=== PATIENT | male | born 1955 | race African-American/Black ===

== ENCOUNTER 2017-09-17 16:26 | Inpatient (IN) ==
[2017-09-17] MEDS ORDERED: SODIUM CHLORIDE 0.9% 500 ML IV STA ×2 (17:06→18:57)
[2017-09-17] MEDS ORDERED: INSULIN LISPRO 100 UNIT/ML SUBCUT STA (17:27)
[2017-09-17 18:22] LABS: Basophils % 0.1 % (0.0-0.8); Hematocrit 20.2 VOL% (42.0-52.0); Hemoglobin 6.5 GM/DL (14.0-18.0); Immature Granulocytes % 0.7 %; Immature Granulocytes Absolute 0.07 #; Lymphocytes # 0.4 10*3/uL (1.4-4.0); Lymphocytes % 4.1 % (21.2-54.2); Mean Corpuscular HGB Conc 32.2 GM/DL (32-36); Mean Corpuscular Hemoglobin 29 PG (27-34); Mean Corpuscular Volume 89.4 FL (87-102); Mean Platelet Volume 10.5 FL (9.6-12.0); Monocytes # 0.6 10*3/uL (0.11-0.8); Monocytes % 6.3 % (1.7-12.7); Neutrophils # 8.5 10*3/uL (1.4-7.4); Neutrophils % 88.8 % (38.7-73.9); Platelet Count 254 T/CUMM (130-400); Red Blood Count 2.26 MC/CUMM (3.8-5.5); Red Cell Distribution Width 13.2 % (9.3-17.3); White Blood Count 9.6 T/CUMM (4-12)
[2017-09-17 18:31] LABS: Apearance,Urine Slightly Hazy (Clear); Bilirubin,Urine Negative (Negative); Blood, Urine Negative (Negative); Glucose,Urine (UA) >=500 mg/dL (Negative); Ketones,Urine 5 mg/dL (Negative); Nitrite,Urine Negative (Negative); Protein,Urine Negative; RBC,Urine 20 /HPF (0-4); Urine Color Yellow (Yellow); Urine Specific Gravity 1.013 (1.001-1.035); Urine Urobilinogen < 2.0 EU/DL (0.2-1.0); WBC,Urine 9 /HPF (0-6)
[2017-09-17 18:45] LABS: Lymphocytes 10 % (20-55); Polychromasia Few; Segmented Neutrophils 88 % (50-85); Total Cells Counted 100
[2017-09-17 18:46] LABS: Elliptocytes Few; Platelet Estimate Adequate
[2017-09-17 18:49] LABS: Alanine Aminotransferase 36 U/L (16-61); Albumin 2.1 G/DL (3.4-5.0); Alkaline Phosphatase 64 U/L (45-117); Aspartate Amino Transferase 57 U/L (0-37); Bilirubin,Total < 0.39 MG/DL (0.2-1.0); Calcium 8.2 MG/DL (8.5-10.1); Total Protein 6.3 G/DL (6.4-8.3)
[2017-09-17 18:50] LABS: Blood Urea Nitrogen 66 MG/DL (7-18); Glucose 450 MG/DL (74-106); Osmolality,Calculated 311.8 MOS/KG (273-304); Potassium 5.2 MMOL/L (3.5-5.1); Sodium 137 MMOL/L (136-145)
[2017-09-17] MEDS ORDERED: PANTOPRAZOLE INJ 80 MG in SODIUM CHLORIDE 0.9% 100 ML IV ONE (18:55)
[2017-09-17] MEDS ORDERED: SODIUM CHLORIDE 0.9% 1,000 ML IV PRN ×2 (18:56→21:11)
[2017-09-17] MEDS ORDERED: PANTOPRAZOLE 40 MG VIAL IV ONE (19:26)
[2017-09-17] MEDS ORDERED: PANTOPRAZOLE INJ 200 MG in SODIUM CHLORIDE 0.9% 250 ML IV SCH (19:30)
[2017-09-17] MEDS ORDERED: GLUCAGON 1 MG VIAL IM PRN (19:36)
[2017-09-17] MEDS ORDERED: DEXTROSE 50% 25 GM/50 ML VIAL IV PRN (19:36)
[2017-09-17] MEDS ORDERED: INSULIN REGULAR 100 UNIT/ML SUBCUT SCH (21:00)
[2017-09-17] MEDS ORDERED: MORPHINE 4 MG/1 ML VIAL IV PRN (21:11)
[2017-09-17] MEDS ORDERED: ONDANSETRON 4 MG/2 ML VIAL IV PRN (21:11)
[2017-09-17] MEDS: SODIUM CHLORIDE 0.9% 1,000 ML IV SCH (22:00)
[2017-09-17 22:12] LABS: INR 1.2; PT Patient Result 12.5 SECS
[2017-09-17] MEDS: INSULIN GLARGINE 100 UNIT/ML SUBCUT SCH (23:16)
[2017-09-17] MEDS: levETIRAcetam 250 MG TABLET PEG SCH (23:16)
[2017-09-17] MEDS: glyBURIDE 5 MG TABLET PEG SCH (23:16)
[2017-09-17] MEDS: cefTRIAXone 1,000 MG in SYRINGE 1 EACH IV SCH (23:22)
[2017-09-17] MEDS: DIVALPROEX SPRINKLE 125 MG CAPSULE PER TUBE SCH (23:58)
[2017-09-18] MEDS: DIVALPROEX SPRINKLE 125 MG CAPSULE PER TUBE SCH (09:27)
[2017-09-18] MEDS: levETIRAcetam 250 MG TABLET PEG SCH ×2 (09:28→22:35)
[2017-09-18] MEDS: glyBURIDE 5 MG TABLET PEG SCH ×2 (09:28→18:32)
[2017-09-18] MEDS: PANTOPRAZOLE 40 MG VIAL IV SCH ×2 (09:29→22:34)
[2017-09-18] MEDS: cefTRIAXone 1,000 MG in SYRINGE 1 EACH IV SCH ×2 (09:43→22:34)
[2017-09-18] MEDS: SODIUM CHLORIDE 0.9% 1,000 ML IV SCH (10:53)
[2017-09-18 10:57] LABS: Basophils % 0.2 % (0.0-0.8); Eosinophils # 0.1 10*3/uL (0.0-0.87); Eosinophils % 0.5 % (0.00-10.9); Hematocrit 28.9 VOL% (42.0-52.0); Immature Granulocytes % 0.9 %; Lymphocytes # 0.8 10*3/uL (1.4-4.0); Lymphocytes % 7.2 % (21.2-54.2); Mean Corpuscular HGB Conc 32.9 GM/DL (32-36); Mean Corpuscular Hemoglobin 29 PG (27-34); Mean Corpuscular Volume 89.2 FL (87-102); Monocytes # 1.6 10*3/uL (0.11-0.8); Monocytes % 15.3 % (1.7-12.7); Neutrophils # 8.2 10*3/uL (1.4-7.4); Neutrophils % 75.9 % (38.7-73.9); Platelet Count 216 T/CUMM (130-400); Red Blood Count 3.24 MC/CUMM (3.8-5.5); Red Cell Distribution Width 13.2 % (9.3-17.3); White Blood Count 10.7 T/CUMM (4-12)
[2017-09-18 11:11] LABS: Hemoglobin 9.5 GM/DL (14.0-18.0)
[2017-09-18 11:22] LABS: Hypochromasia 1+; Microcytosis Slight; Ovalocytes Slight; Platelet Estimate Adequate
[2017-09-18 11:29] LABS: Calcium 8.8 MG/DL (8.5-10.1); Osmolality,Calculated 291.4 MOS/KG (273-304); Potassium 4.6 MMOL/L (3.5-5.1)
[2017-09-18] MEDS: INSULIN REGULAR 100 UNIT/ML SUBCUT SCH ×2 (11:47→18:33)
[2017-09-18] MEDS: COLLAGENASE OINT 30 GM TUBE TOP SCH (13:54)
[2017-09-18] MEDS: ZINC OXIDE PASTE 113 GM TUBE TOP SCH ×2 (13:54→22:35)
[2017-09-18 14:11] LABS: Hematocrit 31.6 VOL% (42.0-52.0); Hemoglobin 10.7 GM/DL (14.0-18.0)
[2017-09-18 21:36] LABS: Hematocrit 29.2 VOL% (42.0-52.0)
[2017-09-18] MEDS: INSULIN GLARGINE 100 UNIT/ML SUBCUT SCH (22:41)
[2017-09-19] MEDS: DIVALPROEX SPRINKLE 125 MG CAPSULE PER TUBE SCH ×3 (00:18→21:12)
[2017-09-19] MEDS: INSULIN REGULAR 100 UNIT/ML SUBCUT SCH ×4 (00:19→18:50)
[2017-09-19] MEDS: SODIUM CHLORIDE 0.9% 1,000 ML IV SCH (00:20)
[2017-09-19 05:52] LABS: Prealbumin 10.9 MG/DL (20-40)
[2017-09-19] MEDS: PANTOPRAZOLE 40 MG VIAL IV SCH ×2 (10:34→21:12)
[2017-09-19] MEDS: cefTRIAXone 1,000 MG in SYRINGE 1 EACH IV SCH ×2 (10:34→21:11)
[2017-09-19] MEDS: ZINC OXIDE PASTE 113 GM TUBE TOP SCH ×2 (10:35→21:19)
[2017-09-19] MEDS: levETIRAcetam 250 MG TABLET PEG SCH ×2 (10:35→21:18)
[2017-09-19] MEDS: glyBURIDE 5 MG TABLET PEG SCH (10:35)
[2017-09-19] MEDS: COLLAGENASE OINT 30 GM TUBE TOP SCH ×2 (10:36→16:39)
[2017-09-19] MEDS: glyBURIDE 2.5 MG TABLET PO SCH ×3 (11:55→18:51)
[2017-09-19 16:36] LABS: Basophils % 0.2 % (0.0-0.8); Eosinophils # 0.1 10*3/uL (0.0-0.87); Eosinophils % 0.5 % (0.00-10.9); Hemoglobin 9.2 GM/DL (14.0-18.0); Immature Granulocytes % 0.6 %; Immature Granulocytes Absolute 0.07 #; Lymphocytes # 0.7 10*3/uL (1.4-4.0); Lymphocytes % 5.9 % (21.2-54.2); Mean Corpuscular HGB Conc 34.1 GM/DL (32-36); Mean Corpuscular Hemoglobin 30 PG (27-34); Mean Corpuscular Volume 87.4 FL (87-102); Monocytes # 1.6 10*3/uL (0.11-0.8); Monocytes % 12.6 % (1.7-12.7); Neutrophils # 9.9 10*3/uL (1.4-7.4); Neutrophils % 80.2 % (38.7-73.9); Platelet Count 208 T/CUMM (130-400); Red Blood Count 3.09 MC/CUMM (3.8-5.5); Red Cell Distribution Width 13.7 % (9.3-17.3); White Blood Count 12.3 T/CUMM (4-12)
[2017-09-19] MEDS: FLUCONAZOLE INJ 200 MG in PREMIX 1 EACH IV SCH (16:39)
[2017-09-19 16:58] LABS: Lymphocytes 10 % (20-55); Platelet Estimate Normal; Segmented Neutrophils 84 % (50-85); Total Cells Counted 100
[2017-09-19 16:59] LABS: Hypochromasia Slight; Microcytosis Slight
[2017-09-20] MEDS: INSULIN REGULAR 100 UNIT/ML SUBCUT SCH ×4 (01:24→17:53)
[2017-09-20 05:41] LABS: Basophils % 0.1 % (0.0-0.8); Eosinophils % 0.4 % (0.00-10.9); Hematocrit 26.3 VOL% (42.0-52.0); Hemoglobin 8.6 GM/DL (14.0-18.0); Immature Granulocytes % 0.7 %; Immature Granulocytes Absolute 0.08 #; Lymphocytes # 0.9 10*3/uL (1.4-4.0); Lymphocytes % 7.7 % (21.2-54.2); Mean Corpuscular HGB Conc 32.7 GM/DL (32-36); Mean Corpuscular Hemoglobin 29 PG (27-34); Mean Corpuscular Volume 89.2 FL (87-102); Mean Platelet Volume 9.8 FL (9.6-12.0); Monocytes # 1.5 10*3/uL (0.11-0.8); Monocytes % 13.2 % (1.7-12.7); Neutrophils # 8.7 10*3/uL (1.4-7.4); Neutrophils % 77.9 % (38.7-73.9); Platelet Count 217 T/CUMM (130-400); Red Blood Count 2.95 MC/CUMM (3.8-5.5); Red Cell Distribution Width 13.5 % (9.3-17.3); White Blood Count 11.1 T/CUMM (4-12)
[2017-09-20 06:14] LABS: Albumin 1.9 G/DL (3.4-5.0); Bilirubin,Total 0.5 MG/DL (0.2-1.0); Calcium 8.3 MG/DL (8.5-10.1); Potassium 3.9 MMOL/L (3.5-5.1); Total Protein 6.1 G/DL (6.4-8.3)
[2017-09-20] MEDS: glyBURIDE 2.5 MG TABLET PO SCH ×2 (09:00→17:54)
[2017-09-20] MEDS: PANTOPRAZOLE 40 MG VIAL IV SCH ×2 (09:52→21:06)
[2017-09-20] MEDS: levETIRAcetam 250 MG TABLET PEG SCH ×2 (09:53→21:06)
[2017-09-20] MEDS: DIVALPROEX SPRINKLE 125 MG CAPSULE PER TUBE SCH ×2 (09:53→21:06)
[2017-09-20] MEDS: cefTRIAXone 1,000 MG in SYRINGE 1 EACH IV SCH ×2 (09:53→21:06)
[2017-09-20] MEDS: COLLAGENASE OINT 30 GM TUBE TOP SCH ×2 (09:55→13:42)
[2017-09-20] MEDS: ZINC OXIDE PASTE 113 GM TUBE TOP SCH ×2 (09:55→21:07)
[2017-09-20] MEDS: FLUCONAZOLE INJ 200 MG in PREMIX 1 EACH IV SCH (17:54)
[2017-09-21] MEDS: INSULIN REGULAR 100 UNIT/ML SUBCUT SCH ×5 (00:29→23:27)
[2017-09-21 07:07] LABS: Basophils % 0.1 % (0.0-0.8); Eosinophils % 0.3 % (0.00-10.9); Hematocrit 27.2 VOL% (42.0-52.0); Hemoglobin 8.6 GM/DL (14.0-18.0); Immature Granulocytes % 0.9 %; Lymphocytes # 0.9 10*3/uL (1.4-4.0); Lymphocytes % 7.8 % (21.2-54.2); Mean Corpuscular HGB Conc 31.6 GM/DL (32-36); Mean Corpuscular Hemoglobin 29 PG (27-34); Mean Platelet Volume 9.6 FL (9.6-12.0); Monocytes # 1.1 10*3/uL (0.11-0.8); Monocytes % 9.8 % (1.7-12.7); Neutrophils # 9.3 10*3/uL (1.4-7.4); Neutrophils % 81.1 % (38.7-73.9); Platelet Count 228 T/CUMM (130-400); Red Blood Count 2.99 MC/CUMM (3.8-5.5); Red Cell Distribution Width 13.8 % (9.3-17.3); White Blood Count 11.4 T/CUMM (4-12)
[2017-09-21] MEDS: glyBURIDE 2.5 MG TABLET PO SCH ×2 (09:18→16:53)
[2017-09-21] MEDS: levETIRAcetam 250 MG TABLET PEG SCH ×2 (09:19→20:46)
[2017-09-21] MEDS: PANTOPRAZOLE 40 MG VIAL IV SCH ×2 (09:19→20:48)
[2017-09-21] MEDS: cefTRIAXone 1,000 MG in SYRINGE 1 EACH IV SCH ×2 (09:20→20:48)
[2017-09-21] MEDS: DIVALPROEX SPRINKLE 125 MG CAPSULE PER TUBE SCH ×2 (09:21→20:47)
[2017-09-21] MEDS: ZINC OXIDE PASTE 113 GM TUBE TOP SCH ×2 (09:23→21:01)
[2017-09-21] MEDS: FLUCONAZOLE INJ 200 MG in PREMIX 1 EACH IV SCH (16:55)
[2017-09-21] MEDS: COLLAGENASE OINT 30 GM TUBE TOP SCH (17:40)
[2017-09-21] MEDS ORDERED: ACETAMINOPHEN 325 MG/10.15 ML UDCUP PO PRN (20:11)
[2017-09-21] MEDS: FLUCONAZOLE INJ 100 MG in IV BAG 1 EACH IV SCH (21:35)
[2017-09-22] MEDS ORDERED: IBUPROFEN 100 MG/5 ML UDCUP PO PRN (00:31)
[2017-09-22 01:49] LABS: Amorphous Crystals,Urine Occasional /HPF (Few); Apearance,Urine CLOUDY (Clear); Bilirubin,Urine Negative (Negative); Blood, Urine Moderate mg/dL (Negative); Glucose,Urine (UA) 150 mg/dL (Negative); Ketones,Urine 5 mg/dL (Negative); Mucus,Urine Occasional /LPF (Occasional); Nitrite,Urine Negative (Negative); Protein,Urine 30 MG/DL; RBC,Urine 233 /HPF (0-4); Urine Color Yellow (Yellow); Urine Specific Gravity 1.017 (1.001-1.035); Urine Urobilinogen < 2.0 EU/DL (0.2-1.0); WBC,Urine 113 /HPF (0-6)
[2017-09-22 01:52] LABS: Basophils % 0.2 % (0.0-0.8); Hematocrit 27.2 VOL% (42.0-52.0); Hemoglobin 8.8 GM/DL (14.0-18.0); Immature Granulocytes % 0.4 %; Immature Granulocytes Absolute 0.04 #; Lymphocytes # 0.7 10*3/uL (1.4-4.0); Lymphocytes % 8.1 % (21.2-54.2); Mean Corpuscular HGB Conc 32.4 GM/DL (32-36); Mean Corpuscular Hemoglobin 30 PG (27-34); Mean Corpuscular Volume 91.3 FL (87-102); Mean Platelet Volume 9.4 FL (9.6-12.0); Monocytes # 0.7 10*3/uL (0.11-0.8); Monocytes % 7.9 % (1.7-12.7); Neutrophils # 7.6 10*3/uL (1.4-7.4); Neutrophils % 83.4 % (38.7-73.9); Platelet Count 222 T/CUMM (130-400); Red Blood Count 2.98 MC/CUMM (3.8-5.5); Red Cell Distribution Width 13.8 % (9.3-17.3); White Blood Count 9.1 T/CUMM (4-12)
[2017-09-22 02:17] LABS: Band Neutrophils 26 % (0-10); Lymphocytes 6 % (20-55); Segmented Neutrophils 60 % (50-85); Total Cells Counted 100
[2017-09-22 02:29] LABS: Potassium 4.1 MMOL/L (3.5-5.1); Prealbumin 6.1 MG/DL (20-40)
[2017-09-22] MEDS: INSULIN REGULAR 100 UNIT/ML SUBCUT SCH ×4 (06:00→23:48)
[2017-09-22] MEDS: DIVALPROEX SPRINKLE 125 MG CAPSULE PER TUBE SCH ×2 (08:15→20:24)
[2017-09-22] MEDS: PANTOPRAZOLE 40 MG VIAL IV SCH ×2 (08:15→20:23)
[2017-09-22] MEDS: ZINC OXIDE PASTE 113 GM TUBE TOP SCH ×2 (08:15→20:24)
[2017-09-22] MEDS: levETIRAcetam 250 MG TABLET PEG SCH ×2 (08:15→20:24)
[2017-09-22] MEDS ORDERED: SODIUM CHLORIDE 0.9% 2,000 ML IV ONE (09:29)
[2017-09-22] MEDS ORDERED: SODIUM CHLORIDE 0.9% 1,000 ML IV ONE (09:29)
[2017-09-22] MEDS: COLLAGENASE OINT 30 GM TUBE TOP SCH (09:30)
[2017-09-22] MEDS: glyBURIDE 2.5 MG TABLET PO SCH (10:26)
[2017-09-22 10:47] LABS: ABG Base Excess 2.9 MMOL/L (-2.5-2.5); ABG HCO3 26.9 MMOL/L (20-26); ABG Oxygen Saturation 91.3 % (95-100); ABG PCO2 40.3 MM HG (35-48); ABG PH 7.438 (7.35-7.45); ABG PO2 62.7 MM HG (80-95); ABG TCO2 24.8 MMOL/L (23-27)
[2017-09-22] MEDS ORDERED: SODIUM CHLORIDE 0.9% 500 ML IV ONE (10:50)
[2017-09-22] MEDS: PIPERACILLIN/TAZOBACTAM 3,375 MG in SODIUM CHLORIDE 0.9% 100 ML IV SCH ×2 (11:45→16:53)
[2017-09-22] MEDS: VANCOMYCIN INJ 1,000 MG in SODIUM CHLORIDE 0.9% 250 ML IV SCH ×2 (11:46→23:42)
[2017-09-22] MEDS: SODIUM CHLORIDE 0.9% 1,000 ML IV SCH ×2 (12:30→23:42)
[2017-09-22 13:12] LABS: Basophils % 0.2 % (0.0-0.8); Hematocrit 28.2 VOL% (42.0-52.0); Hemoglobin 8.9 GM/DL (14.0-18.0); Immature Granulocytes % 0.5 %; Immature Granulocytes Absolute 0.05 #; Lymphocytes # 0.6 10*3/uL (1.4-4.0); Lymphocytes % 6.6 % (21.2-54.2); Mean Corpuscular HGB Conc 31.6 GM/DL (32-36); Mean Corpuscular Hemoglobin 30 PG (27-34); Mean Corpuscular Volume 93.4 FL (87-102); Mean Platelet Volume 9.8 FL (9.6-12.0); Monocytes # 0.6 10*3/uL (0.11-0.8); Monocytes % 6.2 % (1.7-12.7); Neutrophils # 8.2 10*3/uL (1.4-7.4); Neutrophils % 86.5 % (38.7-73.9); Platelet Count 200 T/CUMM (130-400); Red Blood Count 3.02 MC/CUMM (3.8-5.5); Red Cell Distribution Width 13.7 % (9.3-17.3); White Blood Count 9.5 T/CUMM (4-12)
[2017-09-22 13:36] LABS: Band Neutrophils 19 % (0-10); Hypochromasia 1+; Lymphocytes 7 % (20-55); Platelet Estimate Adequate; Segmented Neutrophils 69 % (50-85); Total Cells Counted 100
[2017-09-22 13:38] LABS: Calcium 7.6 MG/DL (8.5-10.1); Osmolality,Calculated 299.7 MOS/KG (273-304); Potassium 4.6 MMOL/L (3.5-5.1)
[2017-09-22] MEDS ORDERED: ALBUTEROL 2.5 MG/3 ML NEB RESP TX PRN (16:27)
[2017-09-22] MEDS: FLUCONAZOLE INJ 100 MG in IV BAG 1 EACH IV SCH (20:23)
[2017-09-23] MEDS: PIPERACILLIN/TAZOBACTAM 3,375 MG in SODIUM CHLORIDE 0.9% 100 ML IV SCH ×3 (01:57→17:29)
[2017-09-23 04:16] LABS: Basophils % 0.2 % (0.0-0.8); Eosinophils % 0.5 % (0.00-10.9); Hemoglobin 8.2 GM/DL (14.0-18.0); Immature Granulocytes % 0.7 %; Immature Granulocytes Absolute 0.06 #; Lymphocytes # 0.6 10*3/uL (1.4-4.0); Lymphocytes % 7.2 % (21.2-54.2); Mean Corpuscular HGB Conc 32.8 GM/DL (32-36); Mean Corpuscular Hemoglobin 29 PG (27-34); Mean Platelet Volume 10.1 FL (9.6-12.0); Monocytes # 0.7 10*3/uL (0.11-0.8); Monocytes % 7.8 % (1.7-12.7); Neutrophils # 7.3 10*3/uL (1.4-7.4); Neutrophils % 83.6 % (38.7-73.9); Platelet Count 225 T/CUMM (130-400); Red Blood Count 2.81 MC/CUMM (3.8-5.5); Red Cell Distribution Width 13.8 % (9.3-17.3); White Blood Count 8.7 T/CUMM (4-12)
[2017-09-23 04:48] LABS: Hypochromasia 1+; Platelet Estimate Adequate
[2017-09-23 04:49] LABS: Microcytosis Slight; Polychromasia Slight; Target Cells Slight
[2017-09-23] MEDS: INSULIN REGULAR 100 UNIT/ML SUBCUT SCH ×3 (05:35→18:28)
[2017-09-23 05:51] LABS: Calcium 7.8 MG/DL (8.5-10.1); Osmolality,Calculated 300.3 MOS/KG (273-304); Potassium 3.9 MMOL/L (3.5-5.1)
[2017-09-23] MEDS: DIVALPROEX SPRINKLE 125 MG CAPSULE PER TUBE SCH ×2 (09:36→21:16)
[2017-09-23] MEDS: PANTOPRAZOLE 40 MG VIAL IV SCH ×2 (09:36→21:17)
[2017-09-23] MEDS: levETIRAcetam 250 MG TABLET PEG SCH ×2 (09:37→21:16)
[2017-09-23] MEDS: COLLAGENASE OINT 30 GM TUBE TOP SCH (09:40)
[2017-09-23] MEDS: SKIN HEALING OINT (AQUAPHOR) 50 GM TUBE TOP PRN (09:41)
[2017-09-23] MEDS: SODIUM CHLORIDE 0.9% 1,000 ML IV SCH ×3 (09:51→18:42)
[2017-09-23] MEDS: ZINC OXIDE PASTE 113 GM TUBE TOP SCH (11:43)
[2017-09-23] MEDS: VANCOMYCIN INJ 1,000 MG in SODIUM CHLORIDE 0.9% 250 ML IV SCH (11:44)
[2017-09-23] MEDS: ALBUTEROL/IPRATROPIUM 3 ML NEB RESP TX SCH ×2 (13:30→19:39)
[2017-09-23] MEDS: FLUCONAZOLE INJ 100 MG in IV BAG 1 EACH IV SCH (21:16)
[2017-09-24] MEDS: INSULIN REGULAR 100 UNIT/ML SUBCUT SCH ×4 (00:11→18:27)
[2017-09-24] MEDS: VANCOMYCIN INJ 1,000 MG in SODIUM CHLORIDE 0.9% 250 ML IV SCH ×3 (00:31→18:26)
[2017-09-24] MEDS: ALBUTEROL/IPRATROPIUM 3 ML NEB RESP TX SCH ×4 (00:38→19:32)
[2017-09-24] MEDS: ZINC OXIDE PASTE 113 GM TUBE TOP SCH ×3 (03:09→20:52)
[2017-09-24] MEDS: SODIUM CHLORIDE 0.9% 1,000 ML IV SCH ×3 (03:09→14:24)
[2017-09-24] MEDS: PIPERACILLIN/TAZOBACTAM 3,375 MG in SODIUM CHLORIDE 0.9% 100 ML IV SCH ×3 (03:09→18:26)
[2017-09-24 05:17] LABS: Basophils % 0.1 % (0.0-0.8); Eosinophils # 0.1 10*3/uL (0.0-0.87); Hematocrit 23.1 VOL% (42.0-52.0); Hemoglobin 7.5 GM/DL (14.0-18.0); Immature Granulocytes Absolute 0.08 #; Lymphocytes # 0.6 10*3/uL (1.4-4.0); Lymphocytes % 7.6 % (21.2-54.2); Mean Corpuscular HGB Conc 32.5 GM/DL (32-36); Mean Corpuscular Hemoglobin 30 PG (27-34); Mean Corpuscular Volume 90.9 FL (87-102); Monocytes # 0.5 10*3/uL (0.11-0.8); Monocytes % 6.6 % (1.7-12.7); Neutrophils # 6.7 10*3/uL (1.4-7.4); Neutrophils % 83.7 % (38.7-73.9); Platelet Count 231 T/CUMM (130-400); Red Blood Count 2.54 MC/CUMM (3.8-5.5); Red Cell Distribution Width 13.9 % (9.3-17.3)
[2017-09-24 05:46] LABS: Band Neutrophils 5 % (0-10); Eosinophils 1 % (0-10); Lymphocytes 7 % (20-55); Microcytosis 1+; Segmented Neutrophils 82 % (50-85); Total Cells Counted 100
[2017-09-24 05:55] LABS: Potassium 4.1 MMOL/L (3.5-5.1); Prealbumin 4.3 MG/DL (20-40)
[2017-09-24] MEDS: levETIRAcetam 250 MG TABLET PEG SCH ×2 (09:53→20:48)
[2017-09-24] MEDS: DIVALPROEX SPRINKLE 125 MG CAPSULE PER TUBE SCH ×2 (09:53→20:48)
[2017-09-24] MEDS: SKIN HEALING OINT (AQUAPHOR) 50 GM TUBE TOP PRN (10:11)
[2017-09-24] MEDS: COLLAGENASE OINT 30 GM TUBE TOP SCH (10:12)
[2017-09-24] MEDS: PANTOPRAZOLE 40 MG VIAL IV SCH ×2 (10:13→20:48)
[2017-09-24] MEDS ORDERED: PROPOFOL 200 MG/20 ML VIAL IV ONE (13:07)
[2017-09-24] MEDS ORDERED: LIDOCAINE 2% 5 ML VIAL ONE (13:07)
[2017-09-24] MEDS ORDERED: SODIUM CHLORIDE 0.9% 1,000 ML IV PRN (14:57)
[2017-09-24] MEDS ORDERED: ERGOCALCIFEROL 50,000 UNIT CAPSULE PO SCH (17:55)
[2017-09-24] MEDS: FLUCONAZOLE INJ 100 MG in IV BAG 1 EACH IV SCH (20:47)
[2017-09-24] MEDS: busPIRone 5 MG TABLET PEG SCH (20:47)
[2017-09-24] MEDS: TAMSULOSIN 0.4 MG CAPSULE PO SCH (20:48)
[2017-09-24] MEDS: DONEPEZIL 5 MG TABLET PEG SCH (20:48)
[2017-09-24] MEDS: ATORVASTATIN 40 MG TABLET PEG SCH (20:48)
[2017-09-25] MEDS: ALBUTEROL/IPRATROPIUM 3 ML NEB RESP TX SCH ×4 (01:21→19:14)
[2017-09-25] MEDS: INSULIN REGULAR 100 UNIT/ML SUBCUT SCH ×4 (01:34→18:30)
[2017-09-25] MEDS: VANCOMYCIN INJ 1,000 MG in SODIUM CHLORIDE 0.9% 250 ML IV SCH ×3 (01:34→16:43)
[2017-09-25] MEDS: PIPERACILLIN/TAZOBACTAM 3,375 MG in SODIUM CHLORIDE 0.9% 100 ML IV SCH ×3 (01:37→16:43)
[2017-09-25 05:42] LABS: Basophils % 0.3 % (0.0-0.8); Eosinophils # 0.1 10*3/uL (0.0-0.87); Eosinophils % 0.8 % (0.00-10.9); Hematocrit 30.4 VOL% (42.0-52.0); Hemoglobin 10.1 GM/DL (14.0-18.0); Immature Granulocytes % 0.9 %; Immature Granulocytes Absolute 0.07 #; Lymphocytes # 0.5 10*3/uL (1.4-4.0); Mean Corpuscular HGB Conc 33.2 GM/DL (32-36); Mean Corpuscular Hemoglobin 29 PG (27-34); Mean Corpuscular Volume 86.6 FL (87-102); Mean Platelet Volume 9.6 FL (9.6-12.0); Monocytes # 0.6 10*3/uL (0.11-0.8); Monocytes % 8.1 % (1.7-12.7); Neutrophils # 6.4 10*3/uL (1.4-7.4); Neutrophils % 82.9 % (38.7-73.9); Platelet Count 235 T/CUMM (130-400); Red Blood Count 3.51 MC/CUMM (3.8-5.5); Red Cell Distribution Width 14.9 % (9.3-17.3); White Blood Count 7.8 T/CUMM (4-12)
[2017-09-25 06:12] LABS: Calcium 8.4 MG/DL (8.5-10.1); Osmolality,Calculated 304.9 MOS/KG (273-304); Potassium 3.6 MMOL/L (3.5-5.1)
[2017-09-25 06:17] LABS: Band Neutrophils 5 % (0-10); Lymphocytes 1 % (20-55); Platelet Estimate Normal; Segmented Neutrophils 87 % (50-85); Total Cells Counted 100
[2017-09-25] MEDS ORDERED: PROMETHAZINE 25 MG/1 ML VIAL IM ONE (07:00)
[2017-09-25] MEDS ORDERED: MEPERIDINE 50 MG/1 ML VIAL IM ONE (07:00)
[2017-09-25] MEDS ORDERED: LIDOCAINE 2% VISCOUS 100 ML BOTTLE SWISH/SPIT ONE (07:30)
[2017-09-25] MEDS ORDERED: LIDOCAINE 2% 20 ML VIAL RESP TX ONE (07:30)
[2017-09-25] MEDS ORDERED: LIDOCAINE 1% 20 ML VIAL MISC INJ ONE (07:30)
[2017-09-25] MEDS ORDERED: MIDAZOLAM 2 MG/2 ML VIAL IV ONE (07:30)
[2017-09-25] MEDS ORDERED: POTASSIUM CHLORIDE RIDER IV ONE (08:30)
[2017-09-25] MEDS ORDERED: AMIODARONE INJ 450 MG in DEXTROSE 5% 241 ML IV SCH ×2 (08:30→15:00)
[2017-09-25] MEDS: CHOLECALCIFEROL 1,000 UNIT TABLET PEG SCH (09:59)
[2017-09-25] MEDS: ZINC OXIDE PASTE 113 GM TUBE TOP SCH ×2 (10:00→20:31)
[2017-09-25] MEDS: DIVALPROEX SPRINKLE 125 MG CAPSULE PER TUBE SCH ×2 (10:00→20:30)
[2017-09-25] MEDS: levETIRAcetam 250 MG TABLET PEG SCH ×2 (10:00→20:31)
[2017-09-25] MEDS: MULTIVITAMIN (CENTRUM) TABLET PEG SCH (10:00)
[2017-09-25] MEDS: busPIRone 5 MG TABLET PEG SCH ×2 (10:00→20:31)
[2017-09-25] MEDS: PANTOPRAZOLE 40 MG VIAL IV SCH ×2 (10:01→20:31)
[2017-09-25] MEDS: ESCITALOPRAM 10 MG TABLET PEG SCH (10:01)
[2017-09-25] MEDS: COLLAGENASE OINT 30 GM TUBE TOP SCH (14:20)
[2017-09-25] MEDS: FLUCONAZOLE INJ 100 MG in IV BAG 1 EACH IV SCH (20:30)
[2017-09-25] MEDS: DONEPEZIL 5 MG TABLET PEG SCH (20:30)
[2017-09-25] MEDS: TAMSULOSIN 0.4 MG CAPSULE PO SCH (20:30)
[2017-09-25] MEDS: ATORVASTATIN 40 MG TABLET PEG SCH (20:31)
[2017-09-26] MEDS: ALBUTEROL/IPRATROPIUM 3 ML NEB RESP TX SCH ×4 (00:16→19:25)
[2017-09-26] MEDS: INSULIN REGULAR 100 UNIT/ML SUBCUT SCH ×4 (01:14→18:08)
[2017-09-26] MEDS: PIPERACILLIN/TAZOBACTAM 3,375 MG in SODIUM CHLORIDE 0.9% 100 ML IV SCH ×3 (01:14→17:45)
[2017-09-26 04:27] LABS: Calcium 8.5 MG/DL (8.5-10.1); Osmolality,Calculated 309.9 MOS/KG (273-304); Potassium 3.7 MMOL/L (3.5-5.1)
[2017-09-26] MEDS: VANCOMYCIN INJ 1,000 MG in SODIUM CHLORIDE 0.9% 250 ML IV SCH ×2 (07:30→17:00)
[2017-09-26] MEDS: MULTIVITAMIN (CENTRUM) TABLET PEG SCH (08:10)
[2017-09-26] MEDS: DIVALPROEX SPRINKLE 125 MG CAPSULE PER TUBE SCH ×2 (08:10→20:15)
[2017-09-26] MEDS: CHOLECALCIFEROL 1,000 UNIT TABLET PEG SCH (08:10)
[2017-09-26] MEDS: busPIRone 5 MG TABLET PEG SCH ×2 (08:10→20:15)
[2017-09-26] MEDS: levETIRAcetam 250 MG TABLET PEG SCH ×2 (08:10→20:15)
[2017-09-26] MEDS: ZINC OXIDE PASTE 113 GM TUBE TOP SCH ×2 (08:11→20:15)
[2017-09-26] MEDS: PANTOPRAZOLE 40 MG VIAL IV SCH ×2 (08:11→20:14)
[2017-09-26] MEDS: ESCITALOPRAM 10 MG TABLET PEG SCH (08:11)
[2017-09-26] MEDS: COLLAGENASE OINT 30 GM TUBE TOP SCH (08:12)
[2017-09-26] MEDS: FLUCONAZOLE INJ 100 MG in IV BAG 1 EACH IV SCH (20:14)
[2017-09-26] MEDS: ATORVASTATIN 40 MG TABLET PEG SCH (20:15)
[2017-09-26] MEDS: DONEPEZIL 5 MG TABLET PEG SCH (20:15)
[2017-09-26] MEDS: TAMSULOSIN 0.4 MG CAPSULE PO SCH (20:15)
[2017-09-27] MEDS: INSULIN REGULAR 100 UNIT/ML SUBCUT SCH ×4 (00:15→17:21)
[2017-09-27] MEDS: VANCOMYCIN INJ 1,000 MG in SODIUM CHLORIDE 0.9% 250 ML IV SCH ×3 (00:15→16:30)
[2017-09-27] MEDS: ALBUTEROL/IPRATROPIUM 3 ML NEB RESP TX SCH ×4 (01:01→19:11)
[2017-09-27] MEDS: PIPERACILLIN/TAZOBACTAM 3,375 MG in SODIUM CHLORIDE 0.9% 100 ML IV SCH ×3 (01:47→16:31)
[2017-09-27 05:10] LABS: Basophils % 0.3 % (0.0-0.8); Eosinophils # 0.1 10*3/uL (0.0-0.87); Eosinophils % 1.3 % (0.00-10.9); Hematocrit 29.9 VOL% (42.0-52.0); Hemoglobin 9.6 GM/DL (14.0-18.0); Immature Granulocytes Absolute 0.08 #; Lymphocytes # 0.5 10*3/uL (1.4-4.0); Lymphocytes % 6.7 % (21.2-54.2); Mean Corpuscular HGB Conc 32.1 GM/DL (32-36); Mean Corpuscular Hemoglobin 29 PG (27-34); Mean Platelet Volume 9.9 FL (9.6-12.0); Neutrophils % 77.7 % (38.7-73.9); Platelet Count 284 T/CUMM (130-400); Red Blood Count 3.36 MC/CUMM (3.8-5.5); Red Cell Distribution Width 14.8 % (9.3-17.3); White Blood Count 7.7 T/CUMM (4-12)
[2017-09-27 05:45] LABS: Band Neutrophils 5 % (0-10); Eosinophils 3 % (0-10); Lymphocytes 14 % (20-55); Platelet Estimate Normal; Segmented Neutrophils 69 % (50-85); Total Cells Counted 100
[2017-09-27] MEDS: DIVALPROEX SPRINKLE 125 MG CAPSULE PER TUBE SCH ×3 (08:03→20:05)
[2017-09-27] MEDS: ESCITALOPRAM 10 MG TABLET PEG SCH (08:04)
[2017-09-27] MEDS: levETIRAcetam 250 MG TABLET PEG SCH ×2 (08:04→20:06)
[2017-09-27] MEDS: busPIRone 5 MG TABLET PEG SCH ×2 (08:04→20:05)
[2017-09-27] MEDS: PANTOPRAZOLE 40 MG VIAL IV SCH ×2 (08:04→20:05)
[2017-09-27] MEDS: CHOLECALCIFEROL 1,000 UNIT TABLET PEG SCH (08:04)
[2017-09-27] MEDS: COLLAGENASE OINT 30 GM TUBE TOP SCH (08:05)
[2017-09-27] MEDS: ZINC OXIDE PASTE 113 GM TUBE TOP SCH ×2 (08:05→20:07)
[2017-09-27] MEDS: MULTIVITAMIN (CENTRUM) TABLET PEG SCH (08:10)
[2017-09-27] MEDS ORDERED: LORazepam 2 MG/1 ML VIAL IV PRN (15:12)
[2017-09-27] MEDS ORDERED: VALPROIC ACID INJ 500 MG in SODIUM CHLORIDE 0.9% 100 ML IV ONE (18:00)
[2017-09-27] MEDS: FLUCONAZOLE INJ 100 MG in IV BAG 1 EACH IV SCH (20:05)
[2017-09-27] MEDS: INSULIN GLARGINE 100 UNIT/ML SUBCUT SCH (20:05)
[2017-09-27] MEDS: ATORVASTATIN 40 MG TABLET PEG SCH (20:06)
[2017-09-27] MEDS: DONEPEZIL 5 MG TABLET PEG SCH (20:06)
[2017-09-27] MEDS: TAMSULOSIN 0.4 MG CAPSULE PO SCH (20:06)
[2017-09-28] MEDS: VANCOMYCIN INJ 1,000 MG in SODIUM CHLORIDE 0.9% 250 ML IV SCH ×4 (00:18→23:55)
[2017-09-28] MEDS: INSULIN REGULAR 100 UNIT/ML SUBCUT SCH ×5 (00:20→23:51)
[2017-09-28] MEDS: ALBUTEROL/IPRATROPIUM 3 ML NEB RESP TX SCH ×4 (01:15→19:40)
[2017-09-28] MEDS: PIPERACILLIN/TAZOBACTAM 3,375 MG in SODIUM CHLORIDE 0.9% 100 ML IV SCH ×2 (01:45→10:34)
[2017-09-28] MEDS: PANTOPRAZOLE 40 MG VIAL IV SCH ×2 (09:26→20:46)
[2017-09-28] MEDS: MULTIVITAMIN (CENTRUM) TABLET PEG SCH (10:20)
[2017-09-28] MEDS: levETIRAcetam 250 MG TABLET PEG SCH ×2 (10:20→20:42)
[2017-09-28] MEDS: DIVALPROEX SPRINKLE 125 MG CAPSULE PER TUBE SCH ×4 (10:20→22:19)
[2017-09-28] MEDS: busPIRone 5 MG TABLET PEG SCH ×2 (10:20→20:42)
[2017-09-28] MEDS: ESCITALOPRAM 10 MG TABLET PEG SCH (10:21)
[2017-09-28] MEDS: CHOLECALCIFEROL 1,000 UNIT TABLET PEG SCH (10:22)
[2017-09-28 11:46] LABS: Calcium 8.5 MG/DL (8.5-10.1); Osmolality,Calculated 315.4 MOS/KG (273-304); Potassium 3.8 MMOL/L (3.5-5.1); Prealbumin 5.8 MG/DL (20-40)
[2017-09-28] MEDS: ZINC OXIDE PASTE 113 GM TUBE TOP SCH ×2 (16:15→20:42)
[2017-09-28] MEDS: COLLAGENASE OINT 30 GM TUBE TOP SCH (16:15)
[2017-09-28] MEDS: DONEPEZIL 5 MG TABLET PEG SCH (20:41)
[2017-09-28] MEDS: INSULIN GLARGINE 100 UNIT/ML SUBCUT SCH (20:41)
[2017-09-28] MEDS: TAMSULOSIN 0.4 MG CAPSULE PO SCH (20:42)
[2017-09-28] MEDS: ATORVASTATIN 40 MG TABLET PEG SCH (20:42)
[2017-09-28] MEDS: FLUCONAZOLE INJ 100 MG in IV BAG 1 EACH IV SCH (20:50)
[2017-09-29] MEDS: ALBUTEROL/IPRATROPIUM 3 ML NEB RESP TX SCH ×3 (00:56→12:40)
[2017-09-29] MEDS: INSULIN REGULAR 100 UNIT/ML SUBCUT SCH ×2 (05:46→12:00)
[2017-09-29] MEDS: ZINC OXIDE PASTE 113 GM TUBE TOP SCH (07:45)
[2017-09-29 07:53] LABS: Calcium 8.2 MG/DL (8.5-10.1); Osmolality,Calculated 308.6 MOS/KG (273-304); Potassium 3.4 MMOL/L (3.5-5.1)
[2017-09-29] MEDS: busPIRone 5 MG TABLET PEG SCH (09:56)
[2017-09-29] MEDS: MULTIVITAMIN (CENTRUM) TABLET PEG SCH (09:57)
[2017-09-29] MEDS: levETIRAcetam 250 MG TABLET PEG SCH (09:57)
[2017-09-29] MEDS: DIVALPROEX SPRINKLE 125 MG CAPSULE PER TUBE SCH (09:57)
[2017-09-29] MEDS: PANTOPRAZOLE 40 MG VIAL IV SCH (09:59)
[2017-09-29] MEDS: CHOLECALCIFEROL 1,000 UNIT TABLET PEG SCH (09:59)
[2017-09-29] MEDS: ESCITALOPRAM 10 MG TABLET PEG SCH (10:02)
[2017-09-29] MEDS ORDERED: VANCOMYCIN INJ 1,000 MG in SODIUM CHLORIDE 0.9% 250 ML IV SCH (13:00)
[2017-09-29] MEDS: COLLAGENASE OINT 30 GM TUBE TOP SCH (16:30)
[2017-09-29 22:17] VITALS: BP 144/74
== END 2017-09-29 17:40 | DRG 377 ==
LOC: EDUNIT# → EDBD → N.ED 16:26 → SUATTDRO 19:21 → N.EDINP 19:21 → N.ICU 20:14 → N.5E 09-18 21:46 → N.CC 09-22 09:50 → N.3E 09-27 20:42
PROVIDERS: ADMIT Internal Medicine; ATTEND Internal Medicine Cardiovascular Disease